=== PATIENT | male | born 1995 | race Two or more races ===

== ENCOUNTER 2023-04-07 19:57 | Emergency (ER) | payer SELFPAY ==
[~2023-04-07] VITALS: Ht 182.9 cm; Wt 137.0 kg
[2023-04-07] MEDS ORDERED: ACETAMINOPHEN 500 MG TAB PO ONE (20:30)
[2023-04-07] MEDS ORDERED: DexAMETHasone SOD PHOS 10MG/1ML VIAL INJ IM ONE (21:00)
[2023-04-07] MEDS ORDERED: PENICILLIN G PROC & BENZAT 1200000 UNITS/2 ML SYRG IM ONE (21:00)
[2023-04-07 21:07] LABS: Basophils # (auto) 0.1 10 ^3/uL (0-0.2); Basophils % (auto) 0.5 % (0.0-2.0); Eosinophils # (auto) 0.3 10 ^3/uL (0-0.8); Eosinophils % (auto) 1.7 % (0.0-7.0); Hemoglobin 16.8 g/dL (13.5-17.5); Lymphocytes # (auto) 0.9 10 ^3/uL (0.4-5.4); Lymphocytes % (auto) 4.4 % (10.0-50.0); Mean Corpuscular Hemoglobin 29.3 pg (28.0-32.0); Mean Corpuscular Hgb Conc. 34.2 g/dL (32.0-36.0); Mean Corpuscular Volume 85.8 fL (80.0-100.0); Monocytes # (auto) 1.7 10 ^3/uL (0-1.3); Monocytes % (auto) 8.5 % (0.0-12.0); Neutrophils # (auto) 16.9 10 ^3/uL (1.6-8.6); Neutrophils % (auto) 84.9 % (37.0-80.0); Nucleated Red Blood Cells % 0.1 %; Red Blood Cells 5.71 10^6/uL (4.5-5.90); Red Cell Distribution Width 12.6 % (11.8-14.3); White Blood Cell 19.8 10^3/uL (4.4-10.8)
[2023-04-07] MEDS ORDERED: PENICILLIN G BENZ 600000 UNIT/ML 1ML SYRG IM ONE (21:15)
[2023-04-07 21:30] LABS: Alanine Aminotransferase 26 U/L (7-40); Albumin 4.5 g/dL (3.2-4.8); Alkaline Phosphatase 75 U/L (46-116); Anion Gap 6 (5-15); Aspartate Aminotransferase 17 U/L (13-40); BUN/Creatinine Ratio 5.3 (10.0-20.0); Blood Urea Nitrogen 5 mg/dL (9-23); Carbon Dioxide 24 mmol/L (20-30); Chloride 103 mmol/L (98-107); Glucose 113 mg/dL (74-106); Potassium 3.8 mmol/L (3.5-5.1); Sodium 133 mmol/L (136-145)
[2023-04-07] MEDS ORDERED: PENICILLIN G BENZ 1200000 UNITS/2 ML SYRG IM ONE (21:30)
[2023-04-07 21:31] LABS: Bilirubin, Total 0.8 mg/dL (0.2-1.0); Total Protein 7.9 g/dL (5.7-8.2)
[2023-04-07 21:37] VITALS: TEMP 100.6
[2023-04-07 21:42] LABS: Rapid Strep A Screen-Throat Negative
[2023-04-08] VITALS: BP 139/93; PULSE 112; RESP 16; O2SAT 96
== END 2023-04-07 23:42 | disposition left against medical advice (07) ==
LOC: ER 19:59
DX: D72.829 Elevated white blood cell count, unspecified (principal); J02.9 Acute pharyngitis, unspecified
CPT/HCPCS: 36415; 70360; 80053; 83605; 85025; 87040; 87070; 87077; 87880; 93005; 96372; 99285; J0561; J1100